=== PATIENT | female | born 1965 | race Caucasian/White ===

== ENCOUNTER 2019-02-24 23:01 | Inpatient (IN) ==
[2019-02-25] MEDS ORDERED: DUONEB (A & A) INH PRN (02:01)
[2019-02-25] MEDS ORDERED: TYLENOL PO PRN (02:01)
[2019-02-25] MEDS ORDERED: ZOFRAN IV PRN (02:01)
[2019-02-25] MEDS ORDERED: LOVENOX SUBQ SCH (02:15)
[2019-02-25] MEDS ORDERED: KLOR-CON PO ONE (02:17)
[2019-02-25] MEDS ORDERED: VANCOMYCIN IV PER PHARMACY MISC SCH (02:30)
[2019-02-25] MEDS: ZOSYN 3.375 GM in NS 50 ML IV SCH ×2 (02:56→08:50)
[2019-02-25] MEDS: NS 1,000 ML IV SCH ×2 (02:57→11:39)
[2019-02-25] MEDS ORDERED: NORCO-10 PO PRN (02:58)
[2019-02-25 03:04] LABS: BASO# 0.02 X1000 (0.0-0.2); BASO% 0.1 % (0.0-0.8); EOS# 0.19 X1000 (0.0-0.7); EOS% 1.1 % (0.0-10.0); HEMOGLOBIN 14.2 g/dL (12.0-16.0); IMM GRAN# 0.08 X1000 (0.0-0.04); IMM GRAN% 0.5 % (0.0-0.5); LYMPH# 3.27 X1000 (1.2-3.4); LYMPH% 19.4 % (20.5-51.1); MCH 29.5 PG (27-31); MCHC 34.6 g/dL (33-37); MCV 85.2 FL (81-99); MONO# 1.57 X1000 (0.11-0.59); MONO% 9.3 % (1.7-9.3); MPV 9.3 FL (7.4-10.4); NEUT# 11.73 X1000 (1.4-6.5); NEUT% 69.6 % (42.2-75.2); PLT 378 X1000 (130-400); RBC 4.81 XMIL (4.2-5.4); RDW 14.9 % (11.5-14.5); WBC 16.86 X1000 (4.8-10.8)
[2019-02-25 03:08] LABS: PTT 29.3 Seconds (22.3-41.8)
[2019-02-25 03:27] LABS: MAGNESIUM 2.1 mg/dL (1.5-2.7)
[2019-02-25 03:42] LABS: AGAP 10; BUN 2 mg/dL (8-22); CALCIUM 8.2 mg/dL (8.8-10.2); CHLORIDE 101 mmol/L (98-107); COSMO 268; CREATININE 0.5 mg/dL (0.5-0.9); ESTIMATED GFR > 60; GLUCOSE 95 mg/dL (70-104); POTASSIUM 3.4 mmol/L (3.5-5.1); SODIUM 136 mmol/L (136-145); TCO2 25 mmol/L (25-35); TOTAL BILIRUBIN 0.21 mg/dL (0.20-1.00); TOTAL PROTEIN 5.9 g/dL (6.3-8.3)
[2019-02-25 03:43] LABS: ALB/GLOB RATIO 1.3; ALBUMIN 3.3 g/dL (3.5-5.0); ALKALINE PHOSPHATASE 123 U/L (32-104); GOT 16 U/L (10-30); GPT 10 U/L (10-36)
[2019-02-25 03:51] LABS: CK INDEX 0.1 (0.0-2.5); CK-MB 1.77 ng/mL (0.0-5.0)
--- NOTE | 2019-02-25 04:10 | HISTORY AND PHYSICAL ---
PRIMARY CARE PHYSICIAN: Dr. Enrique Ma. CHIEF COMPLAINT: Altered mental status. HISTORY OF PRESENT ILLNESS: Mrs Dutton is a 53-year-old female. She presented to [facility] ER today. The patient has a past medical history bipolar disorder type 1 with schizoaffective disorder, suicide ideations, general anxiety disorder, medication noncompliance, nicotine dependence, hyponatremia, hyperlipidemia. The patient states that she has been having these symptoms for several days now. She states that she is running from the devil. When asked if they were hallucinations, she states they are not hallucinations to her. Apparently, the patient was in her front yard running around the yard AMS and family decided to call EMS at that time. She was taken to [facility]. In the ER, they noted her to have a sodium level of 128. Her potassium level was 3.3. Urine drug screen was negative. The patient was complaining of hematuria and abdominal pain. Urinalysis did show 1+ bacteria, did not show any blood, did not show any leukocytes or any nitrites. Ammonia level in the ER was 51. White blood cell count in the ER was noted to be 28,000. The patient is denying any pain to her abdomen right now. States that she does smoke 2 to 3 packs of cigarettes a day and she has a smoker's cough. Lung sounds are clear at the present time. The patient states she is not able to produce any mucus with this cough. CT of the abdomen and pelvis showed a nonobstructing punctate bilateral renal calculi and questionable air, possible 1 to 2 mm left of the UVJ stone. There is also a 6 cm left adnexal cyst, likely an ovarian cyst. CT of the head showed no acute intracranial abnormality. Chest x-ray showed no acute cardiopulmonary process. The patient is lying in bed. She is awake, alert, and oriented. She is in no acute distress. She is denying any pain at this time. She, however, states that she does have chronic pain to her neck and her back. She has had a neck fusion done before and she takes [place] at home for this. When I asked patient if she has been taking all of her medications as prescribed since her last visit at [facility], on 01/31/2019 when she was discharged, she stated that she was taking all these medications as prescribed. The patient has had a history of hyponatremia in the past. When I look back at her records when she was at [place] last month, her sodium level did get down to 132, but whenever she was discharged it was brought back up to 138. PAST MEDICAL HISTORY: Bipolar disorder with schizoaffective disorder, hyperlipidemia, hyponatremia, nicotine dependence, general anxiety disorder, history of suicide attempt, medication noncompliance, insomnia. The patient was on medications for her blood pressure at one time. She was on lisinopril. However, she has not been on this medication since her last admission to [facility]. Blood pressure is stable at this time. 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 FAMILY HISTORY: Father is . He from alcoholism. Mother is . She from lung cancer. The patient has several brothers and sisters. They are all still living and they have no medical problems. SOCIAL HISTORY: Patient lives in [place] with her . She states she smokes 2 to 3 packs of cigarettes a day and she has since the age of 15. She occasionally drinks alcohol 1 to 2 times a year. She does admit to marijuana abuse. No other illicit drug use noted. ALLERGIES: Lamictal, Geodon, Depakote and lithium. MEDICATIONS: Melatonin 10 mg p.o. at bedtime, trazodone 100 mg p.o. at bedtime, Cogentin 1 mg p.o. b.i.d., Haldol 2 mg p.o. b.i.d., Thorazine 100 mg p.o. q.a.m., Thorazine 200 mg p.o. at bedtime, sodium chloride tablets 1 g p.o. b.i.d., Zoloft 50 mg p.o. at bedtime. LABORATORIES AND DIAGNOSTICS: Sodium 128, potassium 3.3, chloride 90, CO2 is 18, anion gap is 20, glucose is 152, BUN is less than 4, creatinine is 0.7, bilirubin is 0.2, alkaline phosphatase is 157, calcium is 9.1. Urine drug screen is negative. Ethylene alcohol is less than 13. Folate is greater than 16.39. Magnesium is 2. PT is 13.2, INR is 1, PTT is 29.8. Salicylates less than 5. T4 is 1.39. TSH is 1.43. Urinalysis does show 1+ bacteria. Vitamin B12 is 383. Acetaminophen is less than 5. Ammonia is 51. White blood cell count is 28.1, red blood cell count is 5.09, hemoglobin is 15, hematocrit is 43.3, platelets 424,000. CT of the abdomen and pelvis shows nonobstructing punctate bilateral renal calculi, questionable of air, possible 1 to 2 mm left of the UVJ stone with no associated hydroureter, a 6 cm left adnexal cyst, likely an ovarian cyst, an ultrasound correlation is recommended, a prior cholecystectomy and hysterectomy. KUB of the abdomen shows punctate bilateral nonobstructing renal calculi. CT of the head shows no acute intracranial abnormality. Chest x-ray shows no acute cardiopulmonary process. REVIEW OF SYSTEMS: Constitutional: A 12 point review of systems has been performed. The patient denies any fever, chills, or flu-like symptoms. She denies any congestion. States she has had a cough that is a dry cough. Denies any rhinorrhea, headaches, vision changes, tinnitus, hoarseness or dizziness. Denies any abnormal neck pain. Denies any excessive thirst or urination, intolerance to heat or cold. Denies any palpitations, or chest pain, orthopnea, or leg edema. The patient is positive for a cough that is negative for sputum. Denies any dyspnea or hemoptysis. Denies any nausea, vomiting, or melena or constipation. Denies any dysuria, frequency, hesitancy, urgency. Hematuria is positive. Musculoskeletal: Patient denies any joint pain. States she does have chronic back pain and neck pain. The patient denies any syncopal episode, dizziness, tremor, or vertigo. The patient is positive for mental illness and depression. Skin: Patient did not have any skin rashes or lesions. PHYSICAL EXAMINATION: VITAL SIGNS: Heart rate 98, respiratory rate 19, blood pressure 117/74, O2 saturation 91% on room air, temperature 98.2 degrees. GENERAL: This is a 53-year-old female. She is well nourished and well developed. She is lying in an ICU bed. She is in no acute distress at present time. HEENT: Atraumatic, normocephalic. Pupils equal, round, reactive to light. Sclerae is anicteric. Mucous membranes are moist. NECK: Supple. No lymphadenopathy. Trachea is midline. No JVD. CARDIOVASCULAR: Regular rate and rhythm. No gallops or rubs appreciated. No murmur. RESPIRATORY: Lung sounds are clear with equal chest excursion. Respirations are nonlabored with no accessory muscle usage. GASTROINTESTINAL: Abdomen is soft, nontender, nondistended. Bowel sounds are present x4. NEUROLOGIC: Cranial nerves 2-12 are intact. The patient is awake, alert, and oriented. Follows all commands. No deficits noted. MUSCULOSKELETAL: Full distal strength noted. No abnormalities of gait. No deformities. EXTREMITIES: No clubbing. No cyanosis. No edema. DP and PT pulses are present and palpable. SKIN: Warm, dry, and intact. No rashes or bruises. No diaphoresis. ASSESSMENT AND PLAN: 1. Hyponatremia. We admitted this patient to the ICU unit from [facility]. We have placed her on monitoring engineer. She received 2 L of normal saline at [facility]. We are going to place her on normal saline at 100 here. I am going to recheck a CMP this morning. 2. Hypokalemia. The patient has a mild drop in her potassium level. It is 3.3. We gave her 40 mEq of potassium and we are going to recheck her CMP this morning. The patient is on home potassium. I have reordered those medications. 3. Leukocytosis. The patient did receive blood cultures at [facility] and she received 2 L of fluid there. The patient's lactic acid there was 1.5. We have started this patient on IV antibiotics of Zosyn and vancomycin per pharmacy. We will await what her blood cultures come back. The patient is denying any fever. 4. Bipolar with schizoaffective disorder. We are going to restart patient's home medications. I have ordered a Thorazine lab level. 5. Nicotine dependence. I am going to order this patient a nicotine patch and we are going to give smoking cessation. 6. Hyperlipidemia. I have reordered her home medications. 7. Deep venous thrombosis prophylaxis. I have started this patient on Lovenox subcutaneous q.24 hours and we are also going to put some LOVE hose on the patient. 8. Gastrointestinal prophylaxis. I have ordered her omeprazole daily. We have admitted this patient to the ICU unit. We have placed her on normal saline at 100 mL/h. We are going to recheck her CMP and her CBC this morning. She was given 2 L of normal saline boluses at [facility]. We are going to start her on Zosyn and vancomycin for her elevated white blood cell count. Blood cultures have been obtained. Her plasma lactate was within normal range. We are going to also repeat her chest x-ray in the morning. I have reordered all of her home medications and we started her on a healthy heart diet. All other further treatment pending hospital course. Dictated by FILIBERTO Felix for Juan Holliday MD I have performed a face to face diagnostic evaluation. Labs/ Xrays- reviewed. Exam- Chest- clear, CV- regular. A/P- Multiple electrolyte abnormalities, Leukocytosis- Admit, IV fluids, monitor sodium and potassium electrolytes.Check blood cultures, IV ABX. Dr. Holliday cc: Juan Holliday MD [facility]
[2019-02-25] MEDS ORDERED: VANCOMYCIN 1,750 MG in NS 250 ML IV ONE (05:00)
[2019-02-25] MEDS ORDERED: HALDOL IV ONE (05:14)
--- NOTE | 2019-02-25 06:57 | Diag Imaging Result Doc PS360 ---
EXAM: CHEST-PORTABLE 02/25/2019 HISTORY: dyspnea TECHNIQUE: AP portable at 0456 COMMENT: There are no previous studies. There is questionable left lower lobe opacity. This may be technical. IMPRESSION: Questionable atelectasis versus pneumonia left lower lobe. Electronically signed by Henry Tolentino 02/25/2019 6:55 AM
[2019-02-25] MEDS ORDERED: SYNTHROID PO SCH (07:00)
[2019-02-25] MEDS: NICODERM PATCH TD SCH ×2 (08:50→08:59)
[2019-02-25] MEDS ORDERED: FOLIC ACID PO SCH (09:00)
[2019-02-25] MEDS ORDERED: HALDOL PO SCH (09:00)
[2019-02-25] MEDS ORDERED: SODIUM CHLORIDE PO SCH (09:00)
[2019-02-25] MEDS ORDERED: PRILOSEC PO SCH (09:00)
[2019-02-25] MEDS ORDERED: COGENTIN PO SCH (09:00)
[2019-02-25] MEDS ORDERED: KLOR-CON PO SCH (09:00)
[2019-02-25] MEDS ORDERED: THORAZINE PO SCH ×2 (09:00→21:00)
--- NOTE | 2019-02-25 10:58 | PROGRESS NOTE ---
DATE: 02/25/2019 SUBJECTIVE: This morning, Ms. Dutton refers to be doing well. I understand she had another episode where she thought people were trying to hurt her. Briefly, Ms. Dutton is a 53-year-old, female with an extensive psychiatric illness with multiple admissions to [facility], last being last month. She continues to have ideation of persecution, even long before she got discharged last month. At home, she continues to have the same ideation. Yesterday, I understand, she almost ran out of her home because of the thought that people were trying to come inside her house to hurt her. OBJECTIVE: Clinically, this morning, her vital signs, blood pressure is 129/85, pulse of 91, respirations are 17, temperature is 97.2 degrees, patient is saturating about 94%. General Examination: Ms. Dutton is a 53-year-old, female. She is in bed. Does not seem to be in any distress. HEENT: Mucosa is pink and slightly dry. Anicteric. Acyanotic. Neck is supple. Chest: Good air entry bilaterally. No crepitations. Cardiovascular: Regular rate and rhythm. Abdomen: Soft, nontender. Extremities: No pedal edema. MARKETING DATA SPECIALIST: The patient is awake, alert, follows commands. Psychiatric: The patient does have a mild flat affect but she is cooperative. She currently does not have any hallucinations or delusional thoughts. Laboratory Data: WBC is 16.86, hemoglobin is 14.2, platelet count of 378,000. Chemistry is also reviewed, completely normal. CK is 1224. ASSESSMENT: 1. Schizoaffective disorder with persecutory ideation. The patient has been started back on her home medications. When medically stable, we will get psychiatry to evaluate her. 2. History of tobacco use and abuse with suspicion of underlying chronic obstructive pulmonary disease. 3. Clinical volume depletion. The patient is on intravenous fluids. 4. Leukocytosis, presumably reactive. However, patient has been started on intravenous antibiotics and will be pending cultures. If the culture is negative, we will discontinue antimicrobial therapy. 5. Atelectasis versus pneumonia on chest x-ray. The patient does not have any symptoms of a lung infection so I think this is more of atelectasis. She is currently on antimicrobial therapy because of leukocytosis. We will repeat a chest x-ray to see if there is any worsening on the image from the previous one. 6. Elevated CK. PLAN: In general, I think Ms. Dutton is clinically stable. Intermittently gets the persecutory ideation. Her antipsychotic medications have all been started. We are going to transfer her to the medical floor. We will continue with the current IV fluids, antimicrobial. Await for the culture report and get [facility] to evaluate her once medically cleared. I have explained the plan to the patient and the , who was at the bedside at the time of the encounter. cc: MD Juan Maldonado MD
[2019-02-25] MEDS ORDERED: VANCOMYCIN 1,400 MG in NS 250 ML IV SCH (17:00)
[2019-02-25] MEDS: NORCO-10 PO PRN (18:03)
[2019-02-25] MEDS ORDERED: DESYREL PO SCH (21:00)
[2019-02-25] MEDS ORDERED: ZOCOR PO SCH (21:00)
[2019-02-25] MEDS ORDERED: ZOLOFT PO SCH (21:00)
[2019-02-25] MEDS ORDERED: MELATONIN PO SCH (21:00)
[2019-02-25] MEDS: FOLIC ACID PO SCH (21:52)
[2019-02-25] MEDS: THORAZINE PO SCH (21:52)
[2019-02-25] MEDS: MELATONIN PO SCH (21:52)
[2019-02-25] MEDS: COGENTIN PO SCH (21:53)
[2019-02-25] MEDS: DESYREL PO SCH (21:53)
[2019-02-26] MEDS: SYNTHROID PO SCH (06:08)
[2019-02-26] MEDS: NORCO-10 PO PRN ×2 (06:15→21:59)
[2019-02-26 07:12] LABS: BASO# 0.04 X1000 (0.0-0.2); BASO% 0.2 % (0.0-0.8); EOS# 0.22 X1000 (0.0-0.7); EOS% 1.3 % (0.0-10.0); HEMATOCRIT 38.8 % (37.0-47.0); HEMOGLOBIN 12.9 g/dL (12.0-16.0); IMM GRAN# 0.06 X1000 (0.0-0.04); IMM GRAN% 0.4 % (0.0-0.5); INR 0.91; LYMPH# 2.68 X1000 (1.2-3.4); LYMPH% 16.4 % (20.5-51.1); MCH 29.1 PG (27-31); MCHC 33.2 g/dL (33-37); MCV 87.6 FL (81-99); MONO# 2.06 X1000 (0.11-0.59); MONO% 12.6 % (1.7-9.3); MPV 9.3 FL (7.4-10.4); NEUT# 11.26 X1000 (1.4-6.5); NEUT% 69.1 % (42.2-75.2); PLT 359 X1000 (130-400); PROTIME 13.1 Seconds (11.0-16.0); RBC 4.43 XMIL (4.2-5.4); RDW 15.4 % (11.5-14.5); WBC 16.32 X1000 (4.8-10.8)
[2019-02-26 07:13] LABS: PTT 26.7 Seconds (22.3-41.8)
[2019-02-26 07:28] LABS: AGAP 10; BUN 8 mg/dL (8-22); CALCIUM 8.5 mg/dL (8.8-10.2); CHLORIDE 106 mmol/L (98-107); CHOLESTEROL 127 mg/dL (0-200); COSMO 272; ESTIMATED GFR 26; GLUCOSE 88 mg/dL (70-104); HDL 41 mg/dL (45-65); LDL 56 mg/dL; POTASSIUM 3.8 mmol/L (3.5-5.1); SODIUM 137 mmol/L (136-145); TCO2 21 mmol/L (25-35); TRIGLYCERIDES 149 mg/dL (35-135); VLDL 30 mg/dL
--- NOTE | 2019-02-26 08:52 | Diag Imaging Result Doc PS360 ---
EXAM: CHEST-2 VIEWS INDICATION: hypoxia/pneumonia TECHNIQUE: 2 views COMPARISON: 02/25/2019 FINDINGS: The vague opacity in the left lower lobe seen on the previous study is not identified. It was probably an artifact. The lungs are grossly clear on the current study. There is no discrete pleural fluid collection or pneumothorax. The cardiomediastinal silhouette and central vasculature are grossly unremarkable. IMPRESSION: No evidence of acute pathology by plain radiograph. The opacity on the left seen previously is not identified. Electronically signed by Toney Sigala 02/26/2019 8:50 AM
[2019-02-26] MEDS: COGENTIN PO SCH ×2 (09:27→22:00)
[2019-02-26] MEDS: FOLIC ACID PO SCH ×2 (09:27→22:20)
[2019-02-26] MEDS: THORAZINE PO SCH ×2 (09:28→22:22)
[2019-02-26] MEDS: NS 1,000 ML IV SCH ×2 (09:28→18:56)
[2019-02-26 14:45] LABS: POTASSIUM 4.5 mmol/L (3.5-5.1)
--- NOTE | 2019-02-26 15:26 | PROGRESS NOTE ---
DATE: 02/26/2019 SUBJECTIVE: This morning Ms. Dutton refers to be doing a lot better, no complaints. According to her the persecutory ideation have improved. She does not feel that any longer today. OBJECTIVE: Vitals: Blood pressure is 136/71, pulse of 87, respiration is 21, temperature 98.2 degrees, patient is saturating 99%. General: Ms Dutton 53-year-old female she is in bed no distress. Mucosa is pink, slightly dry. Anicteric. Acyanotic. Neck: Supple. Chest: Clear to auscultation. No crepitations, no rhonchi. Cardiovascular: Regular rate and rhythm. Abdomen: Soft, nontender, bowel sounds present. Extremities: No pedal edema. RELIABILITY MANAGER: Patient is awake, alert and oriented. Psychiatric: Patient is more cooperative today. Has a congruent mood and affect. No hallucinations and no delusional thoughts. LABORATORY DATA: Has been reviewed. WBC is 16.32, creatinine is up to 2.0, we are going to repeat this today. Repeat chest x-ray seems to shows no evidence of acute pathology by plain radiograph. ASSESSMENT: 1. Schizoaffective disorder with persecutory ideation. This seems to have improved. We will get psych to evaluate the patient. 2. History of tobacco use and abuse with suspicion of underlying chronic obstructive pulmonary disease currently not in exacerbation. Tobacco cessation has been counseled. 3. Clinical volume depletion. Will continue with IV fluids . 4. Acute kidney injury likely combination of fluid depletion and vancomycin induced nephropathy, the antimicrobial has been withheld. We would repeat the test this afternoon and go from there. 5. Pulmonary lung atelectasis. Repeat chest x-ray has improved. 6. Mild rhabdomyolysis. In general I think Ms. Dutton seems to be doing well. She does not have any more persecutory ideations. Hydration status seems to be getting better. However her creatinine this morning has gone up to 2.0, unsure if it is lab error. We are going to repeat this, patient is currently on intravenous fluids. Vancomycin has been discontinued. Will reevaluate her in the morning. If she is doing okay will be able to discharge her. Will also get psych to evaluate her make sure if she does not need any inpatient management. cc: MD BETH Maldonado
[2019-02-26] MEDS: MELATONIN PO SCH (21:59)
[2019-02-26] MEDS: DESYREL PO SCH (22:00)
[2019-02-27] MEDS: NS 1,000 ML IV SCH (05:31)
[2019-02-27] MEDS: SYNTHROID PO SCH (06:37)
[2019-02-27 07:03] LABS: BASO# 0.07 X1000 (0.0-0.2); BASO% 0.5 % (0.0-0.8); EOS# 0.37 X1000 (0.0-0.7); EOS% 2.7 % (0.0-10.0); HEMATOCRIT 37.4 % (37.0-47.0); IMM GRAN# 0.04 X1000 (0.0-0.04); IMM GRAN% 0.3 % (0.0-0.5); LYMPH# 3.46 X1000 (1.2-3.4); LYMPH% 25.1 % (20.5-51.1); MCH 28.9 PG (27-31); MCHC 32.1 g/dL (33-37); MCV 90.1 FL (81-99); MONO# 1.58 X1000 (0.11-0.59); MONO% 11.4 % (1.7-9.3); MPV 9.3 FL (7.4-10.4); NEUT# 8.28 X1000 (1.4-6.5); PLT 327 X1000 (130-400); RBC 4.15 XMIL (4.2-5.4); RDW 15.5 % (11.5-14.5)
[2019-02-27 07:29] LABS: ALBUMIN 2.8 g/dL (3.5-5.0); CALCIUM 8.3 mg/dL (8.8-10.2); CREATININE 2.2 mg/dL (0.5-0.9); PHOSPHORUS 5.4 mg/dL (2.7-4.5); POTASSIUM 4.5 mmol/L (3.5-5.1)
[2019-02-27] MEDS: COGENTIN PO SCH ×2 (09:29→21:09)
[2019-02-27] MEDS: FOLIC ACID PO SCH ×2 (09:29→21:09)
[2019-02-27] MEDS: THORAZINE PO SCH (09:29)
[2019-02-27] MEDS: NORCO-10 PO PRN (09:35)
--- NOTE | 2019-02-27 11:05 | PROGRESS NOTE ---
DATE: 02/27/2019 SUBJECTIVE: This morning Ms. Castaneda refers to be doing a whole lot better. Denies any new complaints. Occasionally, she still complains of some ideations in her brain. Otherwise nothing new. OBJECTIVE: Vital signs: Blood pressure 152/77, pulse 94, respirations 16, and temperature 98.2. General: Ms. Dutton is a 53-year-old female. She is in bed in no distress. Mucosa is pink, slightly dry, anicteric and acyanotic. Neck: Supple. Chest: Clear to auscultation. No crepitations. No rhonchi. Cardiovascular: Regular rate and rhythm. Abdomen: Soft and nontender. Bowel sounds present. Extremities: No pedal edema. CRISIS MANAGER: Patient is awake, alert, and oriented. There is no focal neurological deficit. Psychiatric: Patient is very cooperative with a congruent mood and affect. No hallucination. No delusional thoughts. However, she still has intermittent persecutory ideation. LABORATORY DATA: WBC is down to 13.80, hemoglobin is 12, platelet count of 327,000. Chemistry is reviewed. Creatinine is 2.2. Rest of chemistry is unremarkable. ASSESSMENT: 1. Schizoaffective disorder with persecutory ideation on presentation improved. 2. History of tobacco use and abuse with suspicion of underlying COPD. 3. Clinical volume depletion. Patient is on IV fluids. 4. Acute kidney injury, presumably a combination of volume depletion and vancomycin induced nephropathy. Antimicrobial has been withheld. We will do urinalysis, and also a renal ultrasound and get nephrology to evaluate the patient since the creatinine continues to worsen. 5. Pulmonary lung atelectasis on x-ray, resolved. 6. Mild rhabdomyolysis on presentation. We will repeat the CK. In general, the patient is doing okay. She still looks slightly volume depleted. She is on IV fluids. Her creatinine continues to trend upwards. We will do renal studies and get Nephrology to see her today. cc: Taiwo Butler MD MTDD
--- NOTE | 2019-02-27 12:43 | Diag Imaging Result Doc PS360 ---
EXAM: US RENAL 2 (RETROPER) COMPLETE INDICATION: juan carlos/arf TECHNIQUE: COMPARISON: None. FINDINGS: There is a 1.3 cm simple appearing cyst associated with the right kidney. There is a punctate echogenic focus associated with the left kidney that probably represents a small intrarenal stone. No hydronephrosis and no solid renal mass is identified. The right kidney measures 12.8 cm and the left kidney measures 12.5 cm in the greatest longitudinal axes. Both renal cortices measure up to 1.2 cm in thickness. The urinary bladder is unremarkable. There is a nonspecific collection of fluid layering in the pelvis measuring 4.7 x 5.7 x 4.3 cm. IMPRESSION: 1.Punctate echogenic focus associated with the left kidney that probably represents a small intrarenal stone. 2.Nonspecific fluid collection layering in the pelvis. Electronically signed by Toney Sigala 02/27/2019 12:41 PM
[2019-02-27 18:15] LABS: URINE SOURCE VOIDED
[2019-02-27 18:18] LABS: BILIRUBIN URINE NEGATIVE (NEGATIVE); BLOOD URINE NEGATIVE (NEGATIVE); COLOR STRAW; GLUCOSE URINE NEGATIVE (NEGATIVE); KETONE URINE NEGATIVE (NEGATIVE); LEUKOCYTES URINE NEGATIVE (NEGATIVE); NITRITE URINE NEGATIVE (NEGATIVE); PH URINE 5.5; PROTEIN URINE NEGATIVE (NEGATIVE); SP GRAVITY URINE 1.002; TURBIDITY URINE CLEAR (CLEAR); UR EPITHELIAL CELLS <10 /HPF (<10); URINE BACTERIA NEGATIVE /HPF; URINE RBC <10 /HPF (<10); URINE WBC <10 /HPF (<10); UROBILINOGEN URINE NORMAL (NORMAL)
--- NOTE | 2019-02-27 18:31 | NEPHROLOGY CONSULTATION ---
DATE: 02/27/2019 REASON FOR CONSULTATION: Acute kidney injury. HISTORY OF PRESENT ILLNESS: Ms. Dutton is a 53-year-old white female who was transferred here from [facility] because of multiple psychotic symptoms including suicidal ideation, anxiety and paranoid delusions. Her evaluation in the emergency room at that facility disclosed leukocytosis but no obvious cause. She had a CT of the abdomen performed which showed "nonobstructing punctate bilateral renal calculi with questionable air, a possible 1 to 2 mm left UVJ stone." No IV contrast. She was treated with antibiotics and transferred to this facility in anticipation of admission to [facility]. Her initial creatinine in our facility was 0.5 and ayad to 2.0 on hospital day 2. No evidence that she received IV contrast. I do not have the ER records from [place]. She has never had kidney disease before of which she is aware. PAST MEDICAL HISTORY: As above. She also has hypertension but low compliance. HOME MEDICATIONS: Include levothyroxine, potassium, simvastatin, Thorazine, sertraline, benztropine, folate, haloperidol, hydrocodone, chlorpromazine, melatonin, trazodone. ALLERGIES: Zyprexa. SOCIAL HISTORY: She is attended by her . Continues to smoke heavily. Occasional alcohol. FAMILY HISTORY, REVIEW OF SYSTEMS: Noncontributory. PHYSICAL EXAMINATION: Vital Signs: Blood pressure 149/72, heart rate 75, respirations 16, afebrile. General: No acute distress. Skin: Warm and dry. HEENT: Oropharynx is dry. Poor dentition. Neck: Supple. Neck: Neck veins are not distended. Heart: Regular with a gallop. Lungs: Equal. No crackles or wheezes. Abdomen: Soft, nontender. Bowel sounds present. Extremities: No edema, clubbing or cyanosis. IMPRESSION: Acute kidney injury. Presumably acute tubular necrosis but no clear mechanism for injury. She has undergone appropriate imaging. Urine protein is not collected so we will check just a plain UA. I have reviewed her medications and no changes are required. I agree with withholding her lisinopril. We will follow with you. cc: Mal Asher MD
[2019-02-27 19:02] LABS: UR CREAT RANDOM 13.2 mg/dL (11-20); UR PROT RANDOM < 4.0 mg/dL
[2019-02-27] MEDS: DESYREL PO SCH (21:09)
[2019-02-27] MEDS: MELATONIN PO SCH (21:11)
[2019-02-28] MEDS: THORAZINE PO SCH ×2 (00:06→08:06)
[2019-02-28] MEDS: SYNTHROID PO SCH ×2 (04:50→06:29)
[2019-02-28 07:36] LABS: ALBUMIN 3.1 g/dL (3.5-5.0); CALCIUM 8.2 mg/dL (8.8-10.2); CREATININE 1.8 mg/dL (0.5-0.9); PHOSPHORUS 4.6 mg/dL (2.7-4.5); POTASSIUM 4.1 mmol/L (3.5-5.1)
[2019-02-28] MEDS: FOLIC ACID PO SCH (08:02)
[2019-02-28] MEDS: COGENTIN PO SCH (08:02)
--- NOTE | 2019-02-28 11:10 | NEPHROLOGY PROGRESS NOTE ---
DATE: 02/28/2019 SUBJECTIVE: Patient is resting in bed. She has no complaints. She has been able to eat. She has been able to get up to the bathroom. OBJECTIVE: Vital Signs: Temperature 98.2 degrees, pulse 76, respiratory rate 16, blood pressure 147/80. Intake 1.9 L. Output 1.2 L. Physical Examination: General: Middle-aged female, resting in bed. Awake and alert. She is in no acute distress. HEENT: Normocephalic, atraumatic. FERNIE. Oral mucosa dry. Neck: Supple, without JVD. Cardiovascular: Regular rate and rhythm with S4. Pulmonary: She is clear bilaterally. No wheeze or rales. Abdomen: Soft. Positive bowel sounds. : Not inspected. Extremities: No clubbing, cyanosis, edema. Integumentary: Skin is warm and dry. Neurologic: She does have pill-rolling noted to the left hand. Lab Data: Sodium 139, potassium 4.1, CO2 of 20, BUN 14, creatinine 1.8 (2.2, 2.0). ASSESSMENT AND PLAN: Acute kidney injury, likely acute tubular necrosis. Yesterday, her creatinine had plateaued. She has had improvement over the last 24 hours and greater than a liter of urine output. Anticipate continued improvement. From a renal perspective, she can be discharged at the discretion of the primary. We will continue to follow her labs while she is in the hospital. No further changes from a renal perspective. Dictated by FILIBERTO Reveles for Mal Asher MD Face to face encounter, data reviewed, discussed with Skinny Escalante on 02/28/19. I agree with the above assessment and plan of care. cc: Mal Asher MD [facility]
[2019-02-28 11:30] VITALS: BP 170/87
--- NOTE | 2019-02-28 20:52 | DISCHARGE SUMMARY ---
ADMISSION DATE: 02/24/2019 DISCHARGE DATE: 02/28/2019 DISPOSITION: Home. FOLLOWUP: 1. Dr. Ma. 2. Dr. Asher. 3. The patient's mental health team. CONSULTATION DURING THIS ADMISSION: Nephrology was consulted. Patient was seen by Dr. Asher. INVASIVE PROCEDURES DONE DURING THIS ADMISSION: None. IMAGING STUDIES OF SIGNIFICANCE: 1. A chest x-ray on admission did show atelectasis versus pneumonia. A repeat chest x-ray showed clear. 2. Ultrasound of the kidneys showed a punctate echogenic focus associated with left kidney, but probably represent a small intrarenal stone. Nonspecific fluid collection layering in the pelvis. ADMISSION DIAGNOSES: 1. Hyponatremia. 2. Hypokalemia. 3. Leukocytosis. 4. Bipolar disorder. DIAGNOSES AT THE TIME OF DISCHARGE: 1. Schizoaffective disorder with persecutory ideation on presentation improved. 2. History of tobacco use and abuse with suspicion of underlying COPD. 3. Clinical volume depletion improved. 4. Acute kidney injury, presumably a combination of volume depletion, vancomycin induced nephropathy and acute tubular necrosis. Creatinine is on downward trend. 5. Lung atelectasis resolved. 6. Mild rhabdomyolysis. 7. Hypertension. 8. Hypothyroidism. DISCHARGE MEDICATIONS: 1. Levothyroxine 75 mcg p.o. daily. 2. Simvastatin 40 mg p.o. at bedtime. 3. Thorazine 200 mg at bedtime. 4. Sertraline 50 mg p.o. at bedtime. 5. Cogentin 1 mg p.o. b.i.d. 6. Folic acid 1 mg b.i.d. 7. Haldol 10 mg b.i.d. 8. Melatonin 10 mg p.o. at bedtime. 9. Trazodone 100 mg p.o. at bedtime. 10. Amlodipine 5 mg p.o. daily. PRESENTING COMPLAINT: Altered mental status. HISTORY OF PRESENTING COMPLAINT: Ms. Dutton is a 53-year-old female who presented to the emergency department because of persecutory ideations that people are out to hurt her. Upon presenting to the emergency department, she was evaluated and admitted for further medical care. She was also found to have a few abnormalities on her electrolytes as well as WBC elevated. A chest x-ray did show some atelectasis versus pneumonia. She was empirically started on vancomycin and Zosyn. HOSPITAL COURSE: During the hospital course, Ms. Dutton's creatinine got a bump so antibiotics were discontinue. Nephrology was consulted. Patient was seen by Dr. Asher. During the hospital course, Ms. Dutton's hydration status got better with fluid resuscitation. All her other parameters where within normal ranges. She referred to be feeling a whole lot better. This morning, Ms. Dutton refers to feel okay. Vitals are stable. Blood pressure is 153/79, pulse of 73, respiration is 19, temperature 97.8 degrees. Patient was saturating 98% on room air. We think Ms. Dutton is stable for discharge after she has been evaluated by [facility]. Time spent for discharge is 36 minutes, All the discharge instructions have been discussed with Ms. Dutton and the was at the bedside at the time of the encounter. Ms. Dutton is supposed to also follow up with Dr. Asher with a repeat with renal function test within a week. cc: Taiwo Butler MD
== END 2019-02-28 14:55 | disposition home or self-care (01) | DRG 640 ==
LOC: ICU 23:01 → SUATTDRO 23:01 → 3N 02-25 12:23
PROVIDERS: ATTEND Internal Medicine
CPT/HCPCS: 71010; 71020; 71045; 71046; 76770; 80048; 80053; 80061; 80069; 81001; 82550; 82553; 82570; 83735; 83880; 84132; 84156; 84300; 84443; 84484; 85025; 85610; 85730; 87205; 99999; A9270; J1630; J1650; J2543; J3370; J7030; J7040